=== PATIENT | female | born 1945 ===

== ENCOUNTER 2018-06-13 09:56 | Outpatient (CLI) | payer MEDICARE | END 2018-06-13 09:57 | disposition home or self-care (01) | LOC: C.MAMMO 09:57 | DX: R92.8 Other abnormal and inconclusive findings on diagnostic imaging of breast (principal) ==

== ENCOUNTER 2018-09-24 10:01 | Outpatient (CLI) | payer MEDICARE | END 2018-09-24 10:02 | disposition home or self-care (01) | LOC: C.RADH 10:01 | DX: E75.6 Lipid storage disorder, unspecified (principal); I10 Essential (primary) hypertension; D69.9 Hemorrhagic condition, unspecified; Z13.1 Encounter for screening for diabetes mellitus; E11.9 Type 2 diabetes mellitus without complications; Z13.29 Encounter for screening for other suspected endocrine disorder; E55.9 Vitamin D deficiency, unspecified; M85.80 Other specified disorders of bone density and structure, unspecified site; R19.5 Other fecal abnormalities; Z01.83 Encounter for blood typing; R79.1 Abnormal coagulation profile ==

== ENCOUNTER 2018-09-25 14:16 | Outpatient (CLI) | payer MEDICARE | END 2018-09-25 14:17 | disposition home or self-care (01) | LOC: C.LAB 14:16 | DX: I10 Essential (primary) hypertension (principal); E75.6 Lipid storage disorder, unspecified; D69.9 Hemorrhagic condition, unspecified; Z13.1 Encounter for screening for diabetes mellitus; E55.9 Vitamin D deficiency, unspecified; Z13.29 Encounter for screening for other suspected endocrine disorder; M85.80 Other specified disorders of bone density and structure, unspecified site; R97.20 Elevated prostate specific antigen [PSA]; Z12.5 Encounter for screening for malignant neoplasm of prostate; R19.5 Other fecal abnormalities; Z01.83 Encounter for blood typing; R79.1 Abnormal coagulation profile ==

== ENCOUNTER → 2018-10-02 | Outpatient (CLI) | payer MEDICARE | LOC: C.USIC 08:16 ==